=== PATIENT | female | born 1990 | race African-American/Black ===

== ENCOUNTER 2016-12-13 13:05 | Day surgery (SDC) | payer OTHER ==
[~2016-12-13] VITALS: Ht 157.5 cm; Wt 59.0 kg
[2016-12-13] MEDS ORDERED: ceFAZolin 1GM/50ML D5W 50 ML IV ONE (13:49)
[2016-12-13 13:58] LABS: Basophils # (auto) 0 uL; Basophils % (auto) 0.4 % (0.0-2.0); Eosinophils # (auto) 0 uL; Eosinophils % (auto) 0.1 % (0.0-7.0); Hematocrit 41.6 % (36.0-46.0); Lymphocytes % (auto) 25.8 % (10.0-50.0); Mean Corpuscular Hemoglobin 31.6 pg (28.0-32.0); Mean Corpuscular Hgb Conc. 33.7 g/dL (32.0-36.0); Mean Corpuscular Volume 93.9 fL (80.0-100.0); Mean Platelet Volume 8.6 fL (7.4-10.4); Monocytes # (auto) 0.7 uL; Monocytes % (auto) 8.3 % (0.0-12.0); Neutrophils # (auto) 5.1 uL; Neutrophils % (auto) 65.4 % (37.0-80.0); Platelet Count (auto) 268 10^3/uL (140-450); Red Cell Distribution Width 13.6 % (11.6-16.0); White Blood Cell 7.9 10^3/uL (4.4-10.8)
[2016-12-13 14:13] LABS: INR 0.94 (0.9-1.15); Partial Thromboplastin Time 26.7 sec (22.64-33.71); Prothrombin Time 10.2 sec (9.37-12.3)
[2016-12-13 14:15] LABS: BUN/Creatinine Ratio 10.5; Calcium 9.2 mg/dL (8.5-10.1); Potassium 3.7 mmol/L (3.5-5.1)
[2016-12-13] MEDS ORDERED: fentaNYL CITRATE 100 MCG/2 ML VL ONE (15:38)
[2016-12-13] MEDS ORDERED: PROPOFOL 10 MG/ML 20 ML IV ONE (15:38)
[2016-12-13] MEDS ORDERED: ceFAZolin 1GM VL ONE (15:38)
[2016-12-13] MEDS ORDERED: BUPIVACAINE 0.75% INJ 10ML MPV SDV IJ ONE ×2 (15:38→16:45)
[2016-12-13] MEDS ORDERED: MIDAZOLAM HCL 1MG/1ML-2 ML VIAL ONE (15:38)
[2016-12-13] MEDS ORDERED: ONDANSETRON HCL 4 MG/2 ML VIAL IV ONE (17:15)
[2016-12-13] MEDS ORDERED: MORPHINE SULF INJ 2 MG/ML SYRINGE 1ML IV PRN (17:15)
[2016-12-13] MEDS ORDERED: ePHEDrine SULFATE 50 MG/ML AMP IV PRN (17:15)
[2016-12-13] MEDS ORDERED: hydrALAZINE HCL 20 MG/ML VL IV PRN (17:15)
[2016-12-13 18:10] VITALS: BP 138/88
== END 2016-12-13 18:10 | disposition home or self-care (01) ==
LOC: SUR 13:05
PROVIDERS: ATTEND Podiatrist Foot & Ankle Surgery
DX: M20.41 Other hammer toe(s) (acquired), right foot (principal); M21.071 Valgus deformity, not elsewhere classified, right ankle; M21.611 Bunion of right foot
CPT/HCPCS: 28285; 28296; 28899; 29999; 36415; 73660; 76000; 80048; 84702; 85025; 85610; 85730; 88304; 88311; C1713; C1769; C1776; J0690; J2250; J2704; J3010; J3490; Q4137

== ENCOUNTER 2017-02-19 10:35 | Day surgery (SDC) | payer OTHER ==
[2017-02-18 16:30] LABS: Basophils # (auto) 0 uL; Basophils % (auto) 0.4 % (0.0-2.0); CONDITION Y; Eosinophils # (auto) 0.1 uL; Eosinophils % (auto) 1.1 % (0.0-7.0); Hemoglobin 13.8 g/dL (12.2-16.2); Lymphocytes # (auto) 2.3 uL; Lymphocytes % (auto) 26.5 % (10.0-50.0); Mean Corpuscular Hemoglobin 31.1 pg (28.0-32.0); Mean Corpuscular Hgb Conc. 33.5 g/dL (32.0-36.0); Mean Corpuscular Volume 92.8 fL (80.0-100.0); Mean Platelet Volume 9.4 fL (7.4-10.4); Monocytes # (auto) 0.5 uL; Monocytes % (auto) 5.7 % (0.0-12.0); Neutrophils # (auto) 5.8 uL; Neutrophils % (auto) 66.3 % (37.0-80.0); Platelet Count (auto) 295 10^3/uL (140-450); Red Cell Distribution Width 13.9 % (11.6-16.0); White Blood Cell 8.7 10^3/uL (4.4-10.8)
[2017-02-18 16:31] LABS: Urine Bilirubin Negative (Negative); Urine Color Yellow (Yellow); Urine Glucose Normal (Normal); Urine Nitrite Negative (Negative); Urine RBC 2 /hpf (0 - 4); Urine Squamous Epithelial Cell FEW /hpf (<5); Urine Urobilinogen Normal (Negative); Urine pH 7.5 (5.0-8.0)
[2017-02-18 16:37] LABS: Urine Blood 1+ /uL (Negative); Urine Ketone 1+ (Negative)
[2017-02-18 16:50] LABS: INR 0.94 (0.9-1.15); Partial Thromboplastin Time 28.9 sec (22.64-33.71); Prothrombin Time 10.2 sec (9.37-12.3)
[2017-02-18 16:54] LABS: Albumin 4.2 g/dL (3.4-5.0); BUN/Creatinine Ratio 11.7; Bilirubin, Total 0.6 mg/dL (0.2-1.0); Calcium 9.2 mg/dL (8.5-10.1); Total Protein 8.3 g/dL (6.4-8.2)
[2017-02-18 16:56] LABS: Potassium 4.5 mmol/L (3.5-5.1)
[~2017-02-19] VITALS: Ht 157.5 cm; Wt 59.0 kg
[2017-02-19] MEDS ORDERED: ceFAZolin 1GM/50ML D5W 50 ML IV ONE (12:23)
[2017-02-19] MEDS ORDERED: MIDAZOLAM HCL 1MG/1ML-2 ML VIAL ONE (13:07)
[2017-02-19] MEDS ORDERED: ONDANSETRON HCL 4 MG/2 ML VIAL ONE (13:07)
[2017-02-19] MEDS ORDERED: fentaNYL CITRATE 100 MCG/2 ML VL ONE (13:07)
[2017-02-19] MEDS ORDERED: PROPOFOL 10 MG/ML 20 ML IV ONE (13:07)
[2017-02-19] MEDS ORDERED: SODIUM CHLORIDE LOCK 20 ML ONE (13:07)
[2017-02-19] MEDS ORDERED: BUPIVACAINE 0.75% INJ 10ML MPV SDV IJ ONE ×2 (13:43→13:53)
[2017-02-19] MEDS ORDERED: ceFAZolin 1GM VL ONE (13:43)
[2017-02-19] MEDS ORDERED: ROPIVACAINE 0.5% (5MG/ML) 20ML AMPULE IJ ONE (14:27)
[2017-02-19] MEDS ORDERED: PROPOFOL 100 ML IV ONE (14:29)
[2017-02-19 16:07] VITALS: BP 126/81
== END 2017-02-19 16:07 | disposition home or self-care (01) ==
LOC: SUR 10:35
PROVIDERS: ATTEND Podiatrist Foot & Ankle Surgery
DX: M20.42 Other hammer toe(s) (acquired), left foot (principal); M21.072 Valgus deformity, not elsewhere classified, left ankle; S93.02XA Subluxation of left ankle joint, initial encounter; M89.8X7 Other specified disorders of bone, ankle and foot; M20.12 Hallux valgus (acquired), left foot; M21.612 Bunion of left foot
CPT/HCPCS: 27687; 28285; 28296; 28899; 36415; 73620; 76000; 80053; 81001; 84702; 85025; 85610; 85730; J0690; J2250; J2405; J2704; J2795; J3010; J3490